=== PATIENT | female | born 1965 | race Caucasian/White ===

== ENCOUNTER → 2024-08-27 | Outpatient (CLI) | payer MEDICAID, SELFPAY ==
[2024-08-26 09:24] LABS: Basophils % (Auto) 0 % (0-2.5); Eosinophils # (Auto) 0.1 Thou/mm3 (0.0-0.5); Eosinophils % (Auto) 2 % (0-10); Hematocrit 38.3 % (36.0-46.0); Hemoglobin 12.6 g/dL (12.0-16.0); Immature Granulocytes % (Auto) 0 % (0-0); Immature Granulocytes Auto 0.03 Thou/mm3 (0.00-0.00); Lymphocytes # (Auto) 3.4 Thou/mm3 (1.0-4.8); Lymphocytes % (Auto) 39 % (10-50); Mean Corpuscular HGB Conc 32.9 g/dl (31.0-37.0); Mean Corpuscular Hemoglobin 27.8 pg (25.0-35.0); Mean Corpuscular Volume 84 fL (80-100); Monocytes # (Auto) 0.6 Thou/mm3 (0.0-0.8); Monocytes % (Auto) 7 % (0-12); Neutrophils # (Auto) 4.6 Thou/mm3 (1.8-7.7); Neutrophils % (Auto) 53 % (37-80); Nucleated Red Blood Cell % 0 /100 WBC (0); Platelet Count 288 Thou/mm3 (140-440); Red Blood Count 4.54 Miln/mm3 (4.00-5.20); White Blood Count 8.8 Thou/mm3 (3.6-11.0)
[2024-08-26 09:30] LABS: Prothrombin Time 10.8 Seconds (9.0-12.2)
--- NOTE | 2024-08-27 | XR_ITS ---
Examination: Ultrasound-guided fine needle percutaneous aspiration thyroid nodule, right thyroid nodule. Thyroid sonography, limited Exam date and time: August 27, 2024 0937 hours INDICATIONS: Right lower thyroid nodule on thyroid sonogram today. Technique: A timeout was completed verifying correct patient, procedure, site, positioning and special equipment if applicable. The patient was placed in supine position for the thyroid fine needle percutaneous aspiration The patient's right neck was prepped and draped in sterile fashion. Maximum barrier sterile technique, hand hygiene, ultrasound sterile technique. 1% lidocaine was used to anesthetize the skin and subcutaneous tissues to the patient's right thyroid nodule. Multiple fine needle aspirations were performed and multiple thyroid specimens placed in preservative according to the irm protocol. Specimens appears satisfactory. The attending radiologist was present for the entire procedure. Estimated blood loss 3 cc. The patient tolerated the procedure well and there were no complications. Impression: Successful ultrasound-guided fine-needle percutaneous aspiration thyroid nodule, right thyroid nodule.
--- NOTE | 2024-08-27 08:00 | XR_ITS ---
Examination: Thyroid sonography complete TECHNIQUE: Multiple grayscale sonographic images thyroid lobes are carful analysis Exam date and time: August 27, 2024 0924 hours INDICATIONS: History thyroid nodules FINDINGS: Right thyroid 4.4 x 0.7 x 1.0 cm Upper pole nodule 6 x 3 mm Lower pole nodule 6 x 4 mm, 11 x 9 mm Isthmus nodules 4 x 2 mm, 4 x 3 mm Left thyroid 4.0 x 2.8 x 1.5 cm Lower pole nodule 9 x 10 mm IMPRESSION: Multiple thyroid nodules
== END | disposition home or self-care (01) ==
LOC: SDIM 08:21 → SIRX 09:07
PROVIDERS: Radiology Diagnostic Radiology; PCP Obstetrics & Gynecology; Referring Provider Surgery; Visit Provider Surgery
DX: E04.2 Nontoxic multinodular goiter (principal); Z01.812 Encounter for preprocedural laboratory examination
CPT/HCPCS: 10005; 36415; 76536; 85025; 85610; 85730

== ENCOUNTER 2025-06-25 10:06 | Emergency (ER) | payer MEDICAID, SELFPAY ==
[2025-06-25 10:30] VITALS: BP 166/82; PULSE 68; RESP 17; TEMP 37; O2SAT 97; BMI 31.5
[2025-06-25] MEDS: LIDOCAINE HCL 1% 20 ML VIAL 2.1 ML INFL (10:44)
[2025-06-25] MEDS: cefTRIAXone SOD INJ 1,000 MG VIAL 1000 MG IM (10:44)
--- NOTE | 2025-06-25 11:21 | EDNOTE_ITS ---
ED Skin Abcess FB-RME/HPI General Chief complaint: Skin/Abscess/Foreign Body Stated complaint: SWOLLEN/PAINFUL LEFT EYELID Time Seen by Provider: 06/25/25 10:27 Arrival date/time: 06/25/25 10:06 60-year-old female presents to the emergency department if complains of left eyelid swelling patient reports symptom onset 3 days ago patient reports has been on antibiotics since Monday patient was given a prescription for erythromycin. Patient reports no disturbances in vision. Limitations: no limitations Related Data Home Medications ?Medication ?Instructions ?Recorded ?Confirmed levothyroxine 150 mcg tablet 1 tab PO QDAY 07/23/19 Previous Rx's ?Medication ?Instructions ?Recorded cephalexin 500 mg capsule 500 mg PO QID #28 caps 08/27 cephalexin 500 mg capsule 500 mg PO BID 7 days #14 cap s 06/25/25 Allergies Allergy/AdvReac Type Severity Reaction Status Date / Time No Known Allergies Allergy Verified 06/25/25 10:08 Review of Systems Review of Systems Systems Reviewed: All systems reviewed, normal except as documented Constitutional Constitutional: Reports system reviewed and no additional complaints, except as documented, Denies fever(s) and Denies headache(s) Eyes Eyes: Reports system reviewed and no additional complaints, except as documented, Denies blurry vision and Reports other (Left upper eyelid swelling) ENT Ears, Nose, Mouth, and Throat: Reports system reviewed and no additional complaints, except as documented, Denies headache(s), Denies nasal congestion and Denies nasal discharge Cardiovascular Cardiovascular: Reports system reviewed and no additional complaints, except as documented, Denies chest pain and Denies dyspnea Respiratory Respiratory: Reports system reviewed and no additional complaints, except as documented, Denies chest congestion, Denies cough and Denies dyspnea Gastrointestinal Gastrointestinal: Reports system reviewed and no additional complaints, except as documented and Denies abdominal pain Integumentary/Breasts Skin/Breast: Reports system reviewed and no additional complaints, except as documented and Denies rash Neurologic Neurologic: Reports system reviewed and no additional complaints, except as documented, Reports as per HPI and Denies headache(s) Past Medical History Past Medical History NEUROLOGIC: Negative Neurological Disorders CARDIAC: Negative Cardiac Disorders or Congestive Heart Failure RESPIRATORY: Negative Chronic Obstructive Pulmonary Disease (COPD) GASTROINTESTINAL: Negative Gastrointestinal Disorders GENITOURINARY: Negative Genitourinary Disorders or Renal Disease REPRODUCTIVE: Positive Previous Pregnancies (X3) MUSCULOSKELETAL: Negative Musculoskeletal Disorders ENDOCRINE: Positive Endocrine Disorders and Hypothyroidism; Negative Diabetes Mellitus Type 1 or Diabetes Mellitus Type 2 Family History FAMILY HISTORY: Negative Family Cancer Social History SMOKING STATUS: Never smoker ED Exam General Limitations: Present no limitations General appearance: Present alert and in no apparent distress Head Head exam: Present atraumatic Eye Eye exam: Present PERRL, EOMI and other (Left upper eyelid swelling consistent with stye); Absent conjunctival injection ENT ENT exam: Present normal exam, normal oropharynx and mucous membranes moist Neck Neck exam: Present normal inspection, full ROM and trachea midline Chest Chest inspection: Present normal inspection and symmetric chest wall rise Respiratory Respiratory exam: Present normal lung sounds bilaterally Cardiovascular Cardiovascular exam: Present regular rate, normal rhythm and normal heart sounds Abdominal Exam Abdominal exam: Present soft and normal bowel sounds Extremities Exam Extremities exam: Present normal inspection and full ROM Back Exam Back exam: Present normal inspection and full ROM Neurological Exam Neurological exam: Present alert, oriented X3 and CN II-XII intact Psychiatric Psychiatric exam: Present normal affect and normal mood Skin Skin exam: Present warm, dry, intact and normal color Course Quality Measures none Orders Category Date Time Status Lidocaine 1% 20 ml [Xylocaine 1% 20 ML] Med 06/25/25 10:35 Discontinued 2.1 ml INFL X1 ONE cefTRIAXone [Rocephin] Med 06/25/25 10:35 Discontinued 1,000 mg IM X1 ONE Vital Signs Vital signs: Vital Signs Temperature 98.6 F 06/25/25 10:30 Pulse Rate 68 06/25/25 10:30 Respiratory Rate 17 06/25/25 10:30 Blood Pressure 166/82 H 06/25/25 10:30 Pulse Oximetry (%) 97 06/25/25 10:30 Oxygen Delivery Method Room Air 06/25/25 10:30 O2 saturation 97% on room air within normal limits Skin / Abscess / Foreign Body MDM Narrative MDM Narrative:: 60-year-old female presents to the emergency department if complains of left eyelid swelling patient reports symptom onset 3 days ago patient reports has been on antibiotics since Monday patient was given a prescription for erythromycin. Patient reports no disturbances in vision. On exam patient appears to have hordeolum externum left upper eyelid. Patient is already on erythromycin which I told her to continue Patient was given injection of Rocephin here discharged with Keflex Explained to the patient she is to follow-up with specialist for further evaluation for worsening symptoms or concerns instructed to return immediately for further evaluation. Patient data External records reviewed:: [facility] previous records Clinical information provided by:: patient Social determinants that could affect healthcare access:: none Patient has the following chronic illnesses:: See history How is presenting disease/condition affected by chronic disease/condition?: uneffected by Evaluation data The following diagnostics were reviewed and interpreted by me:: other (specify) (N/A) Lab and/or radiology exams considered but not ordered:: Considered not ordered Interpretation Summary: N/A Medications / Prescriptions Medications or Prescriptions considered but not ordered:: Given Medication administrations:: Medication Administration History Discontinued Medications Ceftriaxone Sodium (Ceftriaxone Sod Inj 1,000 Mg Vial) 1,000 mg IM X1 ONE Stop: 06/25/25 10:36 Last Admin: 06/25/25 10:44 Dose: 1,000 mg Documented By: JER Lidocaine HCl (Lidocaine Hcl 1% 20 Ml Vial) 2.1 ml INFL X1 ONE Stop: 06/25/25 10:36 Last Admin: 06/25/25 10:44 Dose: 2.1 ml Documented By: EF Given Consultations Consultation(s) initiated? (list below): No Diagnosis Skin/Abscess Differential Diagnosis: abscess of skin or subcutaneous tissue and cellulitis Most likely diagnosis given after review of the tests above:: Hordeolum Admission Indicated Admission indicated?: not indicated Admission Request Was there a request for admission?: No Disposition Plan Disposition Plan: Discharge Discharge Attestation Discharge Attestation: The patient and all family members were given an opportunity to ask questions and understood the discharge instructions. Discharge instructions specifically effects, indications for sooner follow up or return to the emergency department, and the expected course of current diagnosis. Patient condition: Stable Discharge Plan Plan Patient Disposition: HOME (Self Care) Discharge Disposition comment: Stable Prescriptions/Referrals Prescriptions/Med Rec: New cephalexin 500 mg capsule 500 mg PO BID 7 Days Qty: 14 0RF No Action levothyroxine 150 mcg Tablet 1 tab PO QDAY cephalexin 500 mg capsule 500 mg PO QID Qty: 28 0RF Problem List Clinical Impression: Hordeolum externum of left upper eyelid Patient/Caregiver Discharge Instructions Education Materials: ED Sty Additional Instructions: Please follow-up with PCP in order get referral to specialist worsening symptoms or concerns return immediately Please apply hot compresses Print Language: Portuguese Stand Alone Forms: [employer] Info., Patient Portal Info Letter PA/TRAY PACKER Supervising Physician PA/TRAY PACKER Supervising Physician: Dr. Howell
== END 2025-06-25 10:48 | disposition home or self-care (01) ==
LOC: SERX 11:12
PROVIDERS: Emergency Provider Emergency Medicine
DX: H00.014 Hordeolum externum left upper eyelid (principal)
CPT/HCPCS: 96372; 99284; J0696; J3490